=== PATIENT | female | born 1995 | race Caucasian/White ===

== ENCOUNTER 2017-06-10 20:22 | Emergency (ER) | payer OTHER, BC ==
[2017-06-10 20:33] VITALS: BP 121/89
--- NOTE | 2017-06-10 22:50 | ER Document Report ---
ED General - General Chief Complaint: Laceration Stated Complaint: FINGER LACERATION Time Seen by Provider: 06/10/17 21:47 Notes: Patient is a 22-year-old female without past medical history, up-to-date on immunizations who presents after accidentally cutting the dorsum of her right third digit at the level of the PIP. She did sustain a superficial flap type laceration due to scissors that she uses for cutting hair. She notes a dull, aching pain to the area. Touching area worsens the pain. She has not tried anything to improve the pain. No additional injuries or concerns. Her tetanus is up-to-date. TRAVEL OUTSIDE OF THE [place] IN LAST 30 DAYS: No Past Medical History - General Information source: Patient - Social History Smoking Status: Never Smoker Frequency of alcohol use: None Drug Abuse: None Lives with: Spouse/Significant other Family History: Reviewed & Not Pertinent Patient has suicidal ideation: No Patient has homicidal ideation: No Renal/ Medical History: Denies: Hx Peritoneal Dialysis Review of Systems - Review of Systems Notes: Constitutional: Negative for fever. Eyes: Negative for visual changes. ENT: Negative for facial injury Cardiovascular: Negative for chest injury. Respiratory: Negative for shortness of breath. Gastrointestinal: Negative for abdominal injury. Genitourinary: Negative for genital injury Musculoskeletal: Negative for back injury. Skin: Positive for laceration/abrasions. Neurological: Negative for head injury. Physical Exam - Vital signs Vitals: Temp Pulse Resp BP Pulse Ox 98.7 F 95 16 121/89 H 100 06/10/17 20:31 06/10/17 20:31 06/10/17 20:31 06/10/17 20:31 06/10/17 20:31 Interpretation: Normal Notes: PHYSICAL EXAMINATION: GENERAL: Well-appearing, well-nourished and in no acute distress. HEAD: Atraumatic, normocephalic. EYES: sclera anicteric, conjunctiva are normal. ENT: Moist mucous membranes. NECK: Normal range of motion LUNGS: Normal work of breathing HEART: 2+ radial pulses bilaterally EXTREMITIES: Full flexion and extension against resistance of the DIP, PIP and MCP of the middle finger of the right hand NEUROLOGICAL: No focal neurological deficits. Moves all extremities spontaneously and on command. PSYCH: Normal mood, normal affect. SKIN: Warm, Dry, normal turgor, small, superficial flap type laceration at the level of the PIP of the right middle finger on the dorsum of the finger Course - Re-evaluation Re-evalutation: 06/10/17 22:48 Patient presents with a superficial flap type laceration over the PIP of the right dorsal third digit. There is not a significant enough laceration to warrant a repair with sutures. Patient's tetanus is already up-to-date. The wound has been cleaned and dressed using Steri-Strips. At this time will discharge with return precautions and follow-up recommendations. Verbal discharge instructions given a the bedside and opportunity for questions given. Medication warnings reviewed. Patient is in agreement with this plan and has verbalized understanding of return precautions and the need for primary care follow-up as needed. - Vital Signs Vital signs: Temp Pulse Resp BP Pulse Ox 98.7 F 88 16 121/89 H 99 06/10/17 20:31 06/10/17 23:03 06/10/17 23:03 06/10/17 20:31 06/10/17 23:03 Discharge - Discharge Clinical Impression: Laceration of right middle finger Qualifiers: Encounter type: initial encounter Damage to nail status: without damage Foreign body presence: without foreign body Qualified Code(s): S61.212A - Laceration without foreign body of right middle finger without damage to nail, initial encounter Condition: Good Disposition: HOME, SELF-CARE Additional Instructions: Return immediately if you develop spreading redness around the wound, pus from the wound, worsening pain, or a fever of >100.4. Keep the area clean and dry. Wash gently with soap and water twice daily and cover with antibiotic ointment.
== END 2017-06-10 23:03 | disposition home or self-care (01) ==
LOC: ER 20:22
DX: S61.212A Laceration without foreign body of right middle finger without damage to nail, initial encounter (principal); W45.8XXA Other foreign body or object entering through skin, initial encounter
CPT/HCPCS: 99283